=== PATIENT | male | born 1935 | race Caucasian/White ===

== ENCOUNTER 2017-11-16 08:12 | Inpatient (IN) | payer OTHER, MEDICARE, BC ==
[~2017-11-16] VITALS: Ht 170.2 cm; Wt 73.6 kg
[~2017-11-16 08:12] MED LIST: AMLO5TAB16 PO; ASPI81TA52 PO; ATOR20TA10 PO; INSU100C10 SQ; LANTUS SQ; LOP25T PO; LOSA100T28 PO; ONDA8TAB9 PO
[2017-11-16] MEDS ORDERED: methylPREDNISolone sod succ 125mg/2ml vial IV ONE (08:20)
[2017-11-16] MEDS ORDERED: ipratropium/albuterol 3ml nebule NEB ONE (08:20)
[2017-11-16] MEDS ORDERED: normal saline 1000ML IV soln IV ONE (08:20)
[2017-11-16 08:37] LABS: BASOPHILS % (AUTO) 0.1 % (0-1); EOSINOPHILS % (AUTO) 0 % (0-6); HEMATOCRIT 39.8 % (42.0-52.0); HEMOGLOBIN 13.7 g/dl (14.0-17.9); LYMPHOCYTES # (AUTO) 1.2 X10'3 (1.1-4.8); LYMPHOCYTES % (AUTO) 6.3 % (21-51); MEAN CORPUSCULAR HEMOGLOBIN 32.6 PG (27.0-31.0); MEAN CORPUSCULAR HGB CONC 34.5 % (33.0-36.5); MEAN CORPUSCULAR VOLUME 94.7 FL (78-98); MEAN PLATELET VOLUME 9.7 FL (7.4-10.4); MONOCYTES # (AUTO) 0.8 X10'3 (0-0.9); MONOCYTES % (AUTO) 4.1 % (2-12); NEUTROPHILS % (AUTO) 89.5 % (42-75); PLATELET COUNT 190 X10'3 (140-440); RED BLOOD COUNT 4.21 X10'6 (4.70-6.10); RED CELL DISTRIBUTION WIDTH 13.4 % (11.5-14.5)
[2017-11-16 08:53] LABS: PROTHROMBIN TIME 10.4 SECONDS (9.0-12.0)
[2017-11-16 08:59] LABS: ALANINE AMINOTRANSFERASE 74 U/L (12-78); ALBUMIN 2.5 G/DL (3.4-5.0); ALBUMIN/GLOBULIN RATIO 0.5 (1.1-1.5); ALKALINE PHOSPHATASE 87 IU/L (46-116); ANION GAP 11 (8-16); ASPARTATE AMINO TRANSFERASE 56 U/L (10-37); BILIRUBIN,TOTAL 0.7 MG/DL (0.1-1.0); BLOOD UREA NITROGEN 29 MG/DL (7-18); BUN/CREATININE RATIO 22.3 (5.4-32.0); CALCIUM 8.9 MG/DL (8.5-10.1); CHLORIDE 101 MMOL/L (99-107); GLUCOSE 264 MG/DL (70-104); POTASSIUM 4.6 MMOL/L (3.5-5.1); SODIUM 139 MMOL/L (135-145); TOTAL CARBON DIOXIDE 26.8 MMOL/L (24-32); TOTAL PROTEIN 7.2 G/DL (6.4-8.2); eGFR 53 ML/MIN
[2017-11-16 09:02] LABS: PLATELET ESTIMATE NORMAL; TOTAL CELLS COUNTED 100; TOXIC GRANULATION 1+; TOXIC VACUOLATION FEW
[2017-11-16] MEDS ORDERED: CefTRIAXone 2gm/NS 100ml IVPB 100 ML IV ONE (09:20)
[2017-11-16] MEDS ORDERED: azithromycin/NS 500mg/250ml 250 ML IV ONE (09:20)
[2017-11-16] MEDS ORDERED: OMEP40CA37 PO (11:32)
[2017-11-16] MEDS ORDERED: BENZ-16 PO (11:32)
[2017-11-16] MEDS ORDERED: OMEP20TA23 PO (11:32)
[2017-11-16] MEDS ORDERED: HYDROcodone/acetaminophen 5mg/325mg tablet PO PRN (12:30)
[2017-11-16] MEDS ORDERED: mag hydrox/Alum hydrox/simeth 30ml oral suspension PO PRN (12:30)
[2017-11-16] MEDS ORDERED: acetaminophen 325mg tablet PO PRN ×2 (12:30)
[2017-11-16] MEDS ORDERED: morphine 2 MG/ML inj. syringe IV PRN ×2 (12:30)
[2017-11-16] MEDS: K and/or MAG REPLACEMENT MC SCH (12:30)
[2017-11-16] MEDS ORDERED: magnesium Cl slow-release 64mg tablet PO PRN (12:30)
[2017-11-16] MEDS ORDERED: dextrose ORAL solution 15 GM/59 ML bottle PO PRN ×2 (12:30)
[2017-11-16] MEDS ORDERED: dextrose 50%-water 50ml dispensing syringe IV PRN ×2 (12:30)
[2017-11-16] MEDS ORDERED: magnesium 4gm in 100ml NS 100 ML IV PRN (12:30)
[2017-11-16] MEDS ORDERED: magnesium 2GM in 50ml NS 50 ML IV PRN (12:30)
[2017-11-16] MEDS ORDERED: diphenhydrAMINE 50 mg/ml inj IV PRN (12:30)
[2017-11-16] MEDS ORDERED: potassium Cl 20 mEq SR tablet PO PRN ×2 (12:30)
[2017-11-16] MEDS ORDERED: HYDROcodone/acetaminophen 10/325mg tab PO PRN (12:30)
[2017-11-16] MEDS ORDERED: magnesium hydroxide 30ml (MOM) UD suspension PO PRN (12:30)
[2017-11-16] MEDS ORDERED: MESSAGE TO PHARMACY PO ONE (12:30)
[2017-11-16] MEDS ORDERED: ondansetron/PF 4mg/2ml inj IV PRN (12:30)
[2017-11-16] MEDS ORDERED: potassium Cl 40MEQ/NS 500ml 500 ML IV PRN ×2 (12:30)
[2017-11-16] MEDS ORDERED: glucagon, human recombinant 1mg kit SUBCUT PRN (12:30)
[2017-11-16] MEDS: normal saline 1000ml 1,000 ML IV SCH ×2 (13:16→22:27)
[2017-11-16] MEDS: benzonatate 100mg capsule PO SCH ×2 (13:16→22:29)
[2017-11-16 13:33] LABS: COLOR,URINE YELLOW (Yellow); GLUCOSE, URINE >=1000 mg/dl (Neg); KETONES,URINE >=80 mg/dl (Neg); LEUKOCYTE ESTERASE ,URINE NEGATIVE (Neg); NITRITES, URINE POSITIVE (Neg); OCCULT BLOOD,URINE MODERATE (Neg); PROTEIN,URINE 100 mg/dl (Neg); UROBILINOGEN,URINE 0.2 E.U/dL (0.2-1.0)
[2017-11-16 13:35] LABS: UA COLLECTION TYPE CLN CATCH MIDSTREAM
[2017-11-16 13:36] LABS: CLARITY,URINE SLIGHTLY CLOUDY (Clear)
[2017-11-16 13:37] LABS: BACTERIA,URINE 1+ /HPF (Neg); SQUAMOUS EPITHELIAL CELL,UR FEW /LPF (FEW); WBC,URINE 20-30 /HPF (0-4)
[2017-11-16 13:38] LABS: MUCUS STRANDS FEW /LPF (Neg); WBC CLUMPS,URINE FEW /HPF (NEGATIVE)
[2017-11-16] MEDS: insulin Lispro (HumaLOG) vial - multi-dose SQ SCH ×3 (13:57→22:24)
[2017-11-16] MEDS: ipratropium/albuterol 3ml nebule NEB SCH ×3 (15:24→23:15)
[2017-11-16] MEDS: methylPREDNISolone sod succ 125mg/2ml vial IV SCH (17:10)
[2017-11-16 17:15] VITALS: BP 121/53
[2017-11-16] MEDS: metoprolol tartrate 25mg tablet PO SCH (19:52)
[2017-11-16] MEDS ORDERED: temazepam 15mg capsule PO PRN (21:00)
[2017-11-16] MEDS: insulin glargine (Lantus) pen - multi-dose SQ SCH (22:25)
[2017-11-16] MEDS: atorvastatin 20mg tablet PO SCH (22:29)
[2017-11-17] MEDS: ipratropium/albuterol 3ml nebule NEB SCH ×6 (03:31→23:00)
[2017-11-17 04:32] VITALS: BP 111/67
[2017-11-17 07:56] LABS: BASOPHILS % (AUTO) 0 % (0-1); EOSINOPHILS % (AUTO) 0 % (0-6); HEMATOCRIT 35.1 % (42.0-52.0); HEMOGLOBIN 11.9 g/dl (14.0-17.9); LYMPHOCYTES # (AUTO) 0.5 X10'3 (1.1-4.8); LYMPHOCYTES % (AUTO) 2.9 % (21-51); MEAN CORPUSCULAR HEMOGLOBIN 32.5 PG (27.0-31.0); MEAN CORPUSCULAR VOLUME 95.7 FL (78-98); MEAN PLATELET VOLUME 10.2 FL (7.4-10.4); MONOCYTES # (AUTO) 0.8 X10'3 (0-0.9); MONOCYTES % (AUTO) 4.9 % (2-12); NEUTROPHILS # (AUTO) 15.3 X10'3 (1.8-7.7); NEUTROPHILS % (AUTO) 92.2 % (42-75); PLATELET COUNT 188 X10'3 (140-440); RED BLOOD COUNT 3.67 X10'6 (4.70-6.10); RED CELL DISTRIBUTION WIDTH 13.7 % (11.5-14.5); WHITE BLOOD COUNT 16.6 X10'3 (4.5-11.0)
[2017-11-17] MEDS: K and/or MAG REPLACEMENT MC SCH (08:00)
[2017-11-17 08:03] LABS: CHLORIDE 104 MMOL/L (99-107); GLUCOSE 438 MG/DL (70-104); POTASSIUM 4.4 MMOL/L (3.5-5.1); SODIUM 140 MMOL/L (135-145)
[2017-11-17 08:04] LABS: ALANINE AMINOTRANSFERASE 54 U/L (12-78); ALBUMIN 2.1 G/DL (3.4-5.0); ALBUMIN/GLOBULIN RATIO 0.5 (1.1-1.5); ALKALINE PHOSPHATASE 80 IU/L (46-116); ANION GAP 18 (8-16); ASPARTATE AMINO TRANSFERASE 39 U/L (10-37); BILIRUBIN,TOTAL 0.4 MG/DL (0.1-1.0); BLOOD UREA NITROGEN 28 MG/DL (7-18); BUN/CREATININE RATIO 23.5 (5.4-32.0); CALCIUM 7.8 MG/DL (8.5-10.1); CREATININE 1.19 MG/DL (0.60-1.10); MAGNESIUM 1.9 MG/DL (1.5-2.4); TOTAL CARBON DIOXIDE 18.3 MMOL/L (24-32); TOTAL PROTEIN 6.5 G/DL (6.4-8.2); eGFR 58 ML/MIN
[2017-11-17 08:08] VITALS: BP 103/70
[2017-11-17] MEDS: cefTRIAXone 1g/NS 100ml IVPB 100 ML IV SCH (09:19)
[2017-11-17] MEDS: pantoprazole 40mg Tablet.DR PO SCH (09:19)
[2017-11-17] MEDS: aspirin 81mg tablet.DR PO SCH (09:20)
[2017-11-17] MEDS: methylPREDNISolone sod succ 125mg/2ml vial IV SCH ×3 (09:20→17:05)
[2017-11-17] MEDS: losartan 50mg tablet PO SCH (09:20)
[2017-11-17] MEDS: metoprolol tartrate 25mg tablet PO SCH ×2 (09:21→20:34)
[2017-11-17] MEDS: amLODIPine 5mg tablet PO SCH (09:22)
[2017-11-17] MEDS: benzonatate 100mg capsule PO SCH ×3 (09:22→20:11)
[2017-11-17] MEDS: azithromycin 250mg tablet PO SCH (09:23)
[2017-11-17] MEDS: enoxaparin 40mg/0.4ml syringe SUBCUT SCH (09:24)
[2017-11-17] MEDS: normal saline 1000ml 1,000 ML IV SCH ×3 (09:24→20:35)
[2017-11-17] MEDS: insulin Lispro (HumaLOG) vial - multi-dose SQ SCH ×2 (09:49→20:08)
[2017-11-17 11:00] VITALS: BP 136/55
[2017-11-17] MEDS ORDERED: HYDROcodone & chlorphen. 10-8mg/5ml oral susp. PO PRN (17:20)
[2017-11-17 19:00] VITALS: BP 122/49
[2017-11-17] MEDS: guaiFENesin ER 600mg tablet PO SCH (20:12)
[2017-11-17] MEDS: atorvastatin 20mg tablet PO SCH (20:13)
[2017-11-17] MEDS: insulin glargine (Lantus) pen - multi-dose SQ SCH (22:49)
[2017-11-18] VITALS: BP 123/56
[2017-11-18] MEDS: methylPREDNISolone sod succ 125mg/2ml vial IV SCH ×3 (03:18→17:10)
[2017-11-18] MEDS: ipratropium/albuterol 3ml nebule NEB SCH ×6 (05:17→23:30)
[2017-11-18] MEDS ORDERED: albuterol 2.5 MG/3 ML nebule NEB ONE (05:20)
[2017-11-18 05:23] LABS: BASOPHILS % (AUTO) 0 % (0-1); EOSINOPHILS # (AUTO) 0.5 X10'3 (0-0.9); EOSINOPHILS % (AUTO) 2.1 % (0-6); HEMATOCRIT 36.5 % (42.0-52.0); HEMOGLOBIN 12.5 g/dl (14.0-17.9); LYMPHOCYTES # (AUTO) 0.6 X10'3 (1.1-4.8); LYMPHOCYTES % (AUTO) 2.6 % (21-51); MEAN CORPUSCULAR HEMOGLOBIN 32.3 PG (27.0-31.0); MEAN CORPUSCULAR HGB CONC 34.2 % (33.0-36.5); MEAN CORPUSCULAR VOLUME 94.5 FL (78-98); MEAN PLATELET VOLUME 9.3 FL (7.4-10.4); MONOCYTES # (AUTO) 0.8 X10'3 (0-0.9); MONOCYTES % (AUTO) 3.4 % (2-12); NEUTROPHILS # (AUTO) 20.7 X10'3 (1.8-7.7); NEUTROPHILS % (AUTO) 91.9 % (42-75); PLATELET COUNT 220 X10'3 (140-440); RED BLOOD COUNT 3.86 X10'6 (4.70-6.10); RED CELL DISTRIBUTION WIDTH 13.6 % (11.5-14.5); WHITE BLOOD COUNT 22.6 X10'3 (4.5-11.0)
[2017-11-18] MEDS ORDERED: furosemide 20 MG/2 ML vial IV ONE (05:25)
[2017-11-18 06:35] LABS: ALANINE AMINOTRANSFERASE 75 U/L (12-78); ALBUMIN 2.2 G/DL (3.4-5.0); ALBUMIN/GLOBULIN RATIO 0.5 (1.1-1.5); ALKALINE PHOSPHATASE 89 IU/L (46-116); ANION GAP 12 (8-16); ASPARTATE AMINO TRANSFERASE 75 U/L (10-37); BILIRUBIN,TOTAL 0.4 MG/DL (0.1-1.0); BLOOD UREA NITROGEN 29 MG/DL (7-18); BUN/CREATININE RATIO 26.9 (5.4-32.0); CALCIUM 7.6 MG/DL (8.5-10.1); CHLORIDE 108 MMOL/L (99-107); CREATININE 1.08 MG/DL (0.60-1.10); GLUCOSE 172 MG/DL (70-104); MAGNESIUM 1.9 MG/DL (1.5-2.4); PHOSPHORUS 2.6 MG/DL (2.3-4.5); POTASSIUM 4.1 MMOL/L (3.5-5.1); SODIUM 141 MMOL/L (135-145); TOTAL CARBON DIOXIDE 20.7 MMOL/L (24-32); TOTAL PROTEIN 6.6 G/DL (6.4-8.2); TROPONIN I 0.09 NG/ML (0.0-0.05); eGFR 65 ML/MIN
[2017-11-18 07:00] VITALS: BP 109/50
[2017-11-18] MEDS: cefTRIAXone 1g/NS 100ml IVPB 100 ML IV SCH (07:42)
[2017-11-18] MEDS: losartan 50mg tablet PO SCH (07:45)
[2017-11-18] MEDS: guaiFENesin ER 600mg tablet PO SCH ×2 (07:45→21:16)
[2017-11-18] MEDS: amLODIPine 5mg tablet PO SCH (07:45)
[2017-11-18] MEDS: azithromycin 250mg tablet PO SCH (07:45)
[2017-11-18] MEDS: benzonatate 100mg capsule PO SCH ×3 (07:45→21:16)
[2017-11-18] MEDS: aspirin 81mg tablet.DR PO SCH (07:46)
[2017-11-18] MEDS: metoprolol tartrate 25mg tablet PO SCH ×2 (07:46→21:20)
[2017-11-18] MEDS: pantoprazole 40mg Tablet.DR PO SCH (07:46)
[2017-11-18] MEDS: enoxaparin 40mg/0.4ml syringe SUBCUT SCH (07:47)
[2017-11-18] MEDS: K and/or MAG REPLACEMENT MC SCH (08:00)
[2017-11-18] MEDS: insulin Lispro (HumaLOG) vial - multi-dose SQ SCH ×3 (09:56→14:05)
[2017-11-18 11:00] VITALS: BP 106/44
[2017-11-18] MEDS: normal saline 1000ml 1,000 ML IV SCH (14:27)
[2017-11-18] MEDS: lactobacillus rhamnosus 10,000 MMU CELLS/CAPSULE PO SCH (17:10)
[2017-11-18] MEDS ORDERED: PRED20TA (17:19)
[2017-11-18 19:00] VITALS: BP_SYST 108; BP_SYST 133; BP_DIAS 54; BP_DIAS 70
[2017-11-18 21:00] VITALS: BP 120/47
[2017-11-18] MEDS: atorvastatin 20mg tablet PO SCH (21:16)
[2017-11-18] MEDS: insulin glargine (Lantus) pen - multi-dose SQ SCH (21:42)
[2017-11-19] VITALS: BP 105/54
[2017-11-19] MEDS: normal saline 1000ml 1,000 ML IV SCH ×2 (02:54→17:12)
[2017-11-19] MEDS: ipratropium/albuterol 3ml nebule NEB SCH ×6 (02:56→23:53)
[2017-11-19 06:14] LABS: BASOPHILS % (AUTO) 0 % (0-1); EOSINOPHILS # (AUTO) 0.4 X10'3 (0-0.9); EOSINOPHILS % (AUTO) 2.1 % (0-6); HEMATOCRIT 34.6 % (42.0-52.0); LYMPHOCYTES # (AUTO) 0.5 X10'3 (1.1-4.8); LYMPHOCYTES % (AUTO) 2.7 % (21-51); MEAN CORPUSCULAR HEMOGLOBIN 32.5 PG (27.0-31.0); MEAN CORPUSCULAR HGB CONC 34.8 % (33.0-36.5); MEAN CORPUSCULAR VOLUME 93.4 FL (78-98); MEAN PLATELET VOLUME 9.7 FL (7.4-10.4); MONOCYTES % (AUTO) 4.9 % (2-12); NEUTROPHILS # (AUTO) 17.6 X10'3 (1.8-7.7); NEUTROPHILS % (AUTO) 90.3 % (42-75); PLATELET COUNT 208 X10'3 (140-440); RED BLOOD COUNT 3.71 X10'6 (4.70-6.10); RED CELL DISTRIBUTION WIDTH 13.5 % (11.5-14.5); WHITE BLOOD COUNT 19.5 X10'3 (4.5-11.0)
[2017-11-19 06:42] LABS: ALANINE AMINOTRANSFERASE 62 U/L (12-78); ALBUMIN 2.1 G/DL (3.4-5.0); ALBUMIN/GLOBULIN RATIO 0.5 (1.1-1.5); ALKALINE PHOSPHATASE 82 IU/L (46-116); ANION GAP 12 (8-16); ASPARTATE AMINO TRANSFERASE 44 U/L (10-37); BILIRUBIN,TOTAL 0.4 MG/DL (0.1-1.0); BLOOD UREA NITROGEN 37 MG/DL (7-18); BUN/CREATININE RATIO 34.6 (5.4-32.0); CALCIUM 7.7 MG/DL (8.5-10.1); CHLORIDE 106 MMOL/L (99-107); CREATININE 1.07 MG/DL (0.60-1.10); GLUCOSE 313 MG/DL (70-104); PHOSPHORUS 2.4 MG/DL (2.3-4.5); POTASSIUM 4.1 MMOL/L (3.5-5.1); SODIUM 140 MMOL/L (135-145); TOTAL CARBON DIOXIDE 22.4 MMOL/L (24-32); eGFR 66 ML/MIN
[2017-11-19 07:00] VITALS: BP 113/52
[2017-11-19] MEDS: lactobacillus rhamnosus 10,000 MMU CELLS/CAPSULE PO SCH ×2 (07:48→17:51)
[2017-11-19] MEDS: guaiFENesin ER 600mg tablet PO SCH ×2 (07:48→19:13)
[2017-11-19] MEDS: cefTRIAXone 1g/NS 100ml IVPB 100 ML IV SCH (07:48)
[2017-11-19] MEDS: benzonatate 100mg capsule PO SCH ×3 (07:48→21:07)
[2017-11-19] MEDS: losartan 50mg tablet PO SCH (07:49)
[2017-11-19] MEDS: azithromycin 250mg tablet PO SCH (07:49)
[2017-11-19] MEDS: amLODIPine 5mg tablet PO SCH (07:49)
[2017-11-19] MEDS: aspirin 81mg tablet.DR PO SCH (07:49)
[2017-11-19] MEDS: metoprolol tartrate 25mg tablet PO SCH ×2 (07:50→19:14)
[2017-11-19] MEDS: enoxaparin 40mg/0.4ml syringe SUBCUT SCH (07:50)
[2017-11-19] MEDS: pantoprazole 40mg Tablet.DR PO SCH (07:50)
[2017-11-19] MEDS: K and/or MAG REPLACEMENT MC SCH (07:51)
[2017-11-19] MEDS: insulin Lispro (HumaLOG) vial - multi-dose SQ SCH ×2 (09:19→21:25)
[2017-11-19 11:00] VITALS: BP 120/50
[2017-11-19 20:00] VITALS: BP 115/49
[2017-11-19] MEDS: atorvastatin 20mg tablet PO SCH (21:07)
[2017-11-19] MEDS: insulin glargine (Lantus) pen - multi-dose SQ SCH (21:09)
[2017-11-20] VITALS: BP 116/52
[2017-11-20] MEDS: ipratropium/albuterol 3ml nebule NEB SCH ×5 (04:22→20:27)
[2017-11-20 06:09] LABS: BASOPHILS # (AUTO) 0.1 X10'3 (0-0.2); BASOPHILS % (AUTO) 0.3 % (0-1); EOSINOPHILS # (AUTO) 0.3 X10'3 (0-0.9); EOSINOPHILS % (AUTO) 1.7 % (0-6); HEMATOCRIT 36.1 % (42.0-52.0); HEMOGLOBIN 12.3 g/dl (14.0-17.9); MEAN CORPUSCULAR HEMOGLOBIN 32.6 PG (27.0-31.0); MEAN CORPUSCULAR VOLUME 95.7 FL (78-98); MEAN PLATELET VOLUME 9.5 FL (7.4-10.4); MONOCYTES # (AUTO) 1.2 X10'3 (0-0.9); MONOCYTES % (AUTO) 6.9 % (2-12); NEUTROPHILS # (AUTO) 14.6 X10'3 (1.8-7.7); NEUTROPHILS % (AUTO) 85.1 % (42-75); PLATELET COUNT 196 X10'3 (140-440); RED BLOOD COUNT 3.78 X10'6 (4.70-6.10); RED CELL DISTRIBUTION WIDTH 13.8 % (11.5-14.5); WHITE BLOOD COUNT 17.1 X10'3 (4.5-11.0)
[2017-11-20 06:25] LABS: ALANINE AMINOTRANSFERASE 60 U/L (12-78); ALBUMIN 2.1 G/DL (3.4-5.0); ALBUMIN/GLOBULIN RATIO 0.5 (1.1-1.5); ALKALINE PHOSPHATASE 84 IU/L (46-116); ANION GAP 9 (8-16); ASPARTATE AMINO TRANSFERASE 40 U/L (10-37); BILIRUBIN,TOTAL 0.5 MG/DL (0.1-1.0); BLOOD UREA NITROGEN 30 MG/DL (7-18); BUN/CREATININE RATIO 31.6 (5.4-32.0); CALCIUM 7.9 MG/DL (8.5-10.1); CHLORIDE 105 MMOL/L (99-107); CREATININE 0.95 MG/DL (0.60-1.10); GLUCOSE 310 MG/DL (70-104); MAGNESIUM 2.1 MG/DL (1.5-2.4); POTASSIUM 4.6 MMOL/L (3.5-5.1); SODIUM 139 MMOL/L (135-145); TOTAL CARBON DIOXIDE 24.9 MMOL/L (24-32); eGFR 76 ML/MIN
[2017-11-20 07:00] VITALS: BP 127/70
[2017-11-20] MEDS: losartan 50mg tablet PO SCH (07:27)
[2017-11-20] MEDS: cefTRIAXone 1g/NS 100ml IVPB 100 ML IV SCH (07:27)
[2017-11-20] MEDS: benzonatate 100mg capsule PO SCH ×3 (07:27→21:31)
[2017-11-20] MEDS: azithromycin 250mg tablet PO SCH (07:28)
[2017-11-20] MEDS: guaiFENesin ER 600mg tablet PO SCH ×2 (07:28→21:31)
[2017-11-20] MEDS: lactobacillus rhamnosus 10,000 MMU CELLS/CAPSULE PO SCH ×2 (07:28→17:30)
[2017-11-20] MEDS: metoprolol tartrate 25mg tablet PO SCH ×2 (07:28→21:32)
[2017-11-20] MEDS: pantoprazole 40mg Tablet.DR PO SCH (07:28)
[2017-11-20] MEDS: aspirin 81mg tablet.DR PO SCH (07:28)
[2017-11-20] MEDS: amLODIPine 5mg tablet PO SCH (07:28)
[2017-11-20] MEDS: K and/or MAG REPLACEMENT MC SCH (07:29)
[2017-11-20] MEDS: enoxaparin 40mg/0.4ml syringe SUBCUT SCH (07:29)
[2017-11-20] MEDS: insulin Lispro (HumaLOG) vial - multi-dose SQ SCH ×2 (10:23→13:25)
[2017-11-20 11:00] VITALS: BP 123/56
[2017-11-20 19:30] VITALS: BP 121/60
[2017-11-20] MEDS: atorvastatin 20mg tablet PO SCH (21:32)
[2017-11-20] MEDS: insulin glargine (Lantus) pen - multi-dose SQ SCH (21:36)
[2017-11-21] VITALS: BP 128/59
[2017-11-21] MEDS: ipratropium/albuterol 3ml nebule NEB SCH ×7 (03:49→23:15)
[2017-11-21 06:24] LABS: BASOPHILS % (AUTO) 0.2 % (0-1); EOSINOPHILS # (AUTO) 0.3 X10'3 (0-0.9); HEMATOCRIT 36.6 % (42.0-52.0); HEMOGLOBIN 12.7 g/dl (14.0-17.9); LYMPHOCYTES # (AUTO) 1.4 X10'3 (1.1-4.8); LYMPHOCYTES % (AUTO) 9.7 % (21-51); MEAN CORPUSCULAR HEMOGLOBIN 32.6 PG (27.0-31.0); MEAN CORPUSCULAR HGB CONC 34.6 % (33.0-36.5); MEAN CORPUSCULAR VOLUME 94.2 FL (78-98); MEAN PLATELET VOLUME 9.2 FL (7.4-10.4); MONOCYTES # (AUTO) 0.9 X10'3 (0-0.9); MONOCYTES % (AUTO) 5.9 % (2-12); NEUTROPHILS # (AUTO) 11.9 X10'3 (1.8-7.7); NEUTROPHILS % (AUTO) 82.2 % (42-75); PLATELET COUNT 191 X10'3 (140-440); RED BLOOD COUNT 3.89 X10'6 (4.70-6.10); RED CELL DISTRIBUTION WIDTH 13.9 % (11.5-14.5); WHITE BLOOD COUNT 14.4 X10'3 (4.5-11.0)
[2017-11-21 06:59] LABS: ALANINE AMINOTRANSFERASE 60 U/L (12-78); ALBUMIN/GLOBULIN RATIO 0.5 (1.1-1.5); ALKALINE PHOSPHATASE 75 IU/L (46-116); ANION GAP 6 (8-16); ASPARTATE AMINO TRANSFERASE 44 U/L (10-37); BILIRUBIN,TOTAL 0.5 MG/DL (0.1-1.0); BLOOD UREA NITROGEN 20 MG/DL (7-18); BUN/CREATININE RATIO 20.2 (5.4-32.0); CALCIUM 8.4 MG/DL (8.5-10.1); CHLORIDE 104 MMOL/L (99-107); CREATININE 0.99 MG/DL (0.60-1.10); GLUCOSE 116 MG/DL (70-104); MAGNESIUM 1.8 MG/DL (1.5-2.4); PHOSPHORUS 2.6 MG/DL (2.3-4.5); POTASSIUM 4.5 MMOL/L (3.5-5.1); SODIUM 139 MMOL/L (135-145); TOTAL CARBON DIOXIDE 28.6 MMOL/L (24-32); TOTAL PROTEIN 5.8 G/DL (6.4-8.2); eGFR 72 ML/MIN
[2017-11-21 07:00] VITALS: BP 133/63
[2017-11-21] MEDS: K and/or MAG REPLACEMENT MC SCH (08:00)
[2017-11-21] MEDS: lactobacillus rhamnosus 10,000 MMU CELLS/CAPSULE PO SCH ×2 (08:41→19:07)
[2017-11-21] MEDS: enoxaparin 40mg/0.4ml syringe SUBCUT SCH (08:41)
[2017-11-21] MEDS: cefTRIAXone 1g/NS 100ml IVPB 100 ML IV SCH (08:41)
[2017-11-21] MEDS: pantoprazole 40mg Tablet.DR PO SCH (08:42)
[2017-11-21] MEDS: guaiFENesin ER 600mg tablet PO SCH ×2 (08:42→19:07)
[2017-11-21] MEDS: aspirin 81mg tablet.DR PO SCH (08:42)
[2017-11-21] MEDS: losartan 50mg tablet PO SCH (08:42)
[2017-11-21] MEDS: benzonatate 100mg capsule PO SCH ×3 (08:43→21:28)
[2017-11-21] MEDS: amLODIPine 5mg tablet PO SCH (08:43)
[2017-11-21] MEDS: azithromycin 250mg tablet PO SCH (08:44)
[2017-11-21] MEDS: metoprolol tartrate 12.5mg (1/2 tablet) PO SCH ×2 (08:44→19:07)
[2017-11-21 11:45] VITALS: BP 104/59
[2017-11-21] MEDS: insulin Lispro (HumaLOG) vial - multi-dose SQ SCH ×2 (13:47→19:11)
[2017-11-21] MEDS: nystatin 15 GM powder TP SCH ×2 (14:47→21:33)
[2017-11-21 19:30] VITALS: BP 133/94
[2017-11-21] MEDS: atorvastatin 20mg tablet PO SCH (21:28)
[2017-11-21] MEDS: insulin glargine (Lantus) pen - multi-dose SQ SCH (21:32)
[2017-11-22] VITALS: BP 127/55
[2017-11-22] MEDS: ipratropium/albuterol 3ml nebule NEB SCH ×3 (04:29→11:20)
[2017-11-22] MEDS: K and/or MAG REPLACEMENT MC SCH (08:00)
[2017-11-22 08:03] VITALS: BP 137/61
[2017-11-22] MEDS: cefTRIAXone 1g/NS 100ml IVPB 100 ML IV SCH (08:34)
[2017-11-22] MEDS: metoprolol tartrate 12.5mg (1/2 tablet) PO SCH (08:37)
[2017-11-22] MEDS: aspirin 81mg tablet.DR PO SCH (08:37)
[2017-11-22] MEDS: pantoprazole 40mg Tablet.DR PO SCH (08:38)
[2017-11-22] MEDS: lactobacillus rhamnosus 10,000 MMU CELLS/CAPSULE PO SCH (08:38)
[2017-11-22] MEDS: guaiFENesin ER 600mg tablet PO SCH (08:38)
[2017-11-22] MEDS: losartan 50mg tablet PO SCH (08:38)
[2017-11-22] MEDS: amLODIPine 5mg tablet PO SCH (08:39)
[2017-11-22] MEDS: azithromycin 250mg tablet PO SCH (08:39)
[2017-11-22] MEDS: benzonatate 100mg capsule PO SCH ×2 (08:39→14:08)
[2017-11-22] MEDS: enoxaparin 40mg/0.4ml syringe SUBCUT SCH (08:40)
[2017-11-22] MEDS: nystatin 15 GM powder TP SCH ×2 (08:40→14:09)
[2017-11-22] MEDS: insulin Lispro (HumaLOG) vial - multi-dose SQ SCH (08:47)
[2017-11-22 11:00] VITALS: BP 110/56
[2017-11-22] MEDS ORDERED: LEVO750T21 PO (11:53)
== END 2017-11-22 16:00 | disposition home health service (06) | DRG 871 ==
LOC: ER 08:13 → ED HOLD 12:27 → EDBEDREQ 15:52 → SUR 3N 16:39
PROVIDERS: ADMIT Family Medicine; ATTEND Family Medicine
DX: A41.9 Sepsis, unspecified organism (principal); J18.9 Pneumonia, unspecified organism; J96.90 Respiratory failure, unspecified, unspecified whether with hypoxia or hypercapnia; N17.9 Acute kidney failure, unspecified; E46 Unspecified protein-calorie malnutrition; J44.0 Chronic obstructive pulmonary disease with (acute) lower respiratory infection; D64.9 Anemia, unspecified; E10.9 Type 1 diabetes mellitus without complications; J44.1 Chronic obstructive pulmonary disease with (acute) exacerbation; E78.5 Hyperlipidemia, unspecified; E86.0 Dehydration; I10 Essential (primary) hypertension; I25.10 Atherosclerotic heart disease of native coronary artery without angina pectoris; K21.9 Gastro-esophageal reflux disease without esophagitis; Z95.1 Presence of aortocoronary bypass graft; Z88.8 Allergy status to other drugs, medicaments and biological substances; Z79.4 Long term (current) use of insulin; Z87.442 Personal history of urinary calculi; Z87.891 Personal history of nicotine dependence; Z82.49 Family history of ischemic heart disease and other diseases of the circulatory system; Z68.25 Body mass index [BMI] 25.0-25.9, adult
CPT/HCPCS: 36415; 71045; 71250; 80053; 81001; 82948; 83036; 83605; 83735; 83880; 84100; 84145; 84484; 85025; 85610; 87040; 87070; 87088; 87502; 87503; 93005; 93306; 94640; 94667; 94668; 94760; 96361; 96365; 96375; 97116; 97161; 99285; A6212; A6258; J0456; J0696; J1650; J1815; J1940; J2930; J7030

== ENCOUNTER 2018-09-01 21:57 | Emergency (ER) | payer MEDICARE, BC, OTHER ==
[~2018-09-01] VITALS: Ht 172.7 cm; Wt 80.0 kg
[~2018-09-01 21:57] MED LIST changes: -ASPI81TA52 PO; +BENZ-16 PO; +LOSA100T15 PO; -LOSA100T28 PO; +OMEP20TA23 PO
[2018-09-01] MEDS ORDERED: tetanus & diphtheria toxoid (Td) vaccine 0.5ml IMVAC ONE (23:00)
[2018-09-01] MEDS ORDERED: TETanus/Pertussis (Acell)/Diphther VAC/PF (Tdap-Adult) 0.5ml syringe IMVAC ONE (23:05)
[2018-09-01 23:41] VITALS: BP 117/69
== END 2018-09-01 23:44 | disposition home or self-care (01) ==
LOC: ER 21:57
DX: S08.0XXA Avulsion of scalp, initial encounter (principal); S00.03XA Contusion of scalp, initial encounter; I25.10 Atherosclerotic heart disease of native coronary artery without angina pectoris; I10 Essential (primary) hypertension; E11.9 Type 2 diabetes mellitus without complications; Z87.442 Personal history of urinary calculi; Z87.440 Personal history of urinary (tract) infections; Z79.4 Long term (current) use of insulin; Z88.8 Allergy status to other drugs, medicaments and biological substances; W18.30XA Fall on same level, unspecified, initial encounter; Y93.89 Activity, other specified; Y92.89 Other specified places as the place of occurrence of the external cause; Y99.8 Other external cause status
CPT/HCPCS: 70450; 90471; 90715; 99284

== ENCOUNTER 2019-02-07 09:29 | Emergency (ER) | payer MEDICARE, OTHER ==
[~2019-02-07] VITALS: Ht 172.7 cm; Wt 79.0 kg
[~2019-02-07 09:29] MED LIST changes: -LOSA100T15 PO; +LOSA100T57 PO
[2019-02-07 10:39] LABS: CLARITY,URINE SLIGHTLY CLOUDY (Clear); COLOR,URINE YELLOW (Yellow); GLUCOSE, URINE 500 mg/dl (Neg); KETONES,URINE NEGATIVE (Neg); LEUKOCYTE ESTERASE ,URINE MODERATE (Neg); NITRITES, URINE NEGATIVE (Neg); OCCULT BLOOD,URINE LARGE (Neg); PH,URINE 5.5 (4.8-8.0); PROTEIN,URINE NEGATIVE (Neg); UROBILINOGEN,URINE 0.2 E.U/dL (0.2-1.0)
[2019-02-07 10:40] LABS: BASOPHILS # (AUTO) 0.1 X10'3 (0-0.2); BASOPHILS % (AUTO) 1.2 % (0-1); EOSINOPHILS # (AUTO) 0.4 X10'3 (0-0.9); EOSINOPHILS % (AUTO) 4.5 % (0-6); HEMOGLOBIN 13.6 g/dl (14.0-17.9); LYMPHOCYTES # (AUTO) 1.7 X10'3 (1.1-4.8); LYMPHOCYTES % (AUTO) 18.7 % (21-51); MEAN CORPUSCULAR HEMOGLOBIN 31.5 PG (27.0-31.0); MEAN CORPUSCULAR HGB CONC 33.2 g/dL (33.0-36.5); MEAN CORPUSCULAR VOLUME 95.1 FL (78-98); MEAN PLATELET VOLUME 9.5 FL (7.4-10.4); MONOCYTES % (AUTO) 10.9 % (2-12); NEUTROPHILS # (AUTO) 5.7 X10'3 (1.8-7.7); NEUTROPHILS % (AUTO) 64.7 % (42-75); PLATELET COUNT 232 X10'3 (140-440); RED BLOOD COUNT 4.31 X10'6 (4.70-6.10); RED CELL DISTRIBUTION WIDTH 13.5 % (11.5-14.5); WHITE BLOOD COUNT 8.9 X10'3 (4.5-11.0)
[2019-02-07 10:43] LABS: UA COLLECTION TYPE CLN CATCH MIDSTREAM
[2019-02-07 10:44] LABS: BACTERIA,URINE 4+ /HPF (Neg); MUCUS STRANDS NONE SEEN /LPF (Neg); SQUAMOUS EPITHELIAL CELL,UR FEW /LPF (FEW); WBC,URINE 30-50 /HPF (0-4)
[2019-02-07 10:46] LABS: ALANINE AMINOTRANSFERASE 28 U/L (12-78); ALBUMIN 3.3 G/DL (3.4-5.0); ALBUMIN/GLOBULIN RATIO 0.9 (1.1-1.5); ALKALINE PHOSPHATASE 83 IU/L (46-116); ANION GAP 5 (8-16); ASPARTATE AMINO TRANSFERASE 22 U/L (10-37); BILIRUBIN,TOTAL 0.5 MG/DL (0.1-1.0); BLOOD UREA NITROGEN 18 MG/DL (7-18); BUN/CREATININE RATIO 17.6 (5.4-32.0); CALCIUM 8.3 MG/DL (8.5-10.1); CHLORIDE 104 MMOL/L (99-107); CREATININE 1.02 MG/DL (0.60-1.10); GLUCOSE 235 MG/DL (70-104); POTASSIUM 4.4 MMOL/L (3.5-5.1); SODIUM 139 MMOL/L (135-145); TOTAL CARBON DIOXIDE 30.1 MMOL/L (24-32); eGFR 69 ML/MIN
[2019-02-07] MEDS ORDERED: normal saline 1000ML IV soln IVB ONE (11:05)
[2019-02-07] MEDS ORDERED: CefTRIAXone 2gm/D5W 50ml 50 ML IV ONE (11:10)
[2019-02-07] MEDS ORDERED: iohexol 350MG/ML 100ml bottle IV ONE (11:14)
[2019-02-07] MEDS ORDERED: PHEN-716 PO (12:36)
[2019-02-07] MEDS ORDERED: CEPH-572 PO (12:36)
[2019-02-07 12:55] VITALS: BP 113/53
--- NOTE | 2019-02-07 17:25 | NUR ---
LATE ENTRY AT REAL TIME: TC FROM RADIOLOGIST, DR. SORIA, STATING THAT HE WAS REVIEWING THE PATIENT'S CT OF THE ABDOMEN WITH SUSPICION ABOUT THE PANCREAS. DR. SORIA REQUESTED NURSE TO INFORM PATIENT TO HAVE REPEAT CT OF ABDOMEN IN 4-6 MONTHS. THIS NURSE MADE TC TO PATIENT AT HOME AND INFORMED HIM OF THIS INFORMATION. PATIENT VERBALIZED UNDERSTANDING AND WILL SPEAK WITH HIS PRIMARY CARE DOCTOR ABOUT THIS FOLLOW-UP RECOMMENDATION.
== END 2019-02-07 13:12 | disposition home or self-care (01) ==
LOC: ER 09:29
DX: N39.0 Urinary tract infection, site not specified (principal); E10.65 Type 1 diabetes mellitus with hyperglycemia; R31.0 Gross hematuria; I25.10 Atherosclerotic heart disease of native coronary artery without angina pectoris; I10 Essential (primary) hypertension; Z85.46 Personal history of malignant neoplasm of prostate; Z87.442 Personal history of urinary calculi; Z98.890 Other specified postprocedural states; Z95.1 Presence of aortocoronary bypass graft; Z88.8 Allergy status to other drugs, medicaments and biological substances; Z79.4 Long term (current) use of insulin; Z79.899 Other long term (current) drug therapy
CPT/HCPCS: 36415; 74178; 80053; 81001; 85025; 87077; 87088; 87186; 96365; 99284; J0696; J7030; Q9967

== ENCOUNTER 2019-11-28 13:10 | Emergency (ER) | payer MEDICARE, OTHER ==
[~2019-11-28] VITALS: Ht 172.7 cm; Wt 68.0 kg
[~2019-11-28 13:10] MED LIST changes: +PHEN-716 PO
[2019-11-28 13:11] VITALS: BP 173/65
== END 2019-11-28 15:05 | disposition home or self-care (01) ==
LOC: ER 13:10
DX: M79.604 Pain in right leg (principal); I25.10 Atherosclerotic heart disease of native coronary artery without angina pectoris; I10 Essential (primary) hypertension; E11.9 Type 2 diabetes mellitus without complications; Z95.1 Presence of aortocoronary bypass graft; Z98.890 Other specified postprocedural states; Z88.8 Allergy status to other drugs, medicaments and biological substances; Z79.4 Long term (current) use of insulin; Z79.899 Other long term (current) drug therapy; W01.0XXA Fall on same level from slipping, tripping and stumbling without subsequent striking against object, initial encounter; Y93.01 Activity, walking, marching and hiking; Y92.092 Bedroom in other non-institutional residence as the place of occurrence of the external cause; Y99.8 Other external cause status
CPT/HCPCS: 73502; 99284

== ENCOUNTER 2022-09-26 12:14 | Emergency (ER) | payer MEDICARE ==
[~2022-09-26] VITALS: Ht 167.6 cm; Wt 78.2 kg
[2022-09-26 12:22] VITALS: BP 129/60
== END 2022-09-26 14:37 | disposition left against medical advice (07) ==
LOC: ER 12:14
DX: E11.65 Type 2 diabetes mellitus with hyperglycemia (principal); Z53.21 Procedure and treatment not carried out due to patient leaving prior to being seen by health care provider
CPT/HCPCS: 82948